=== PATIENT | male | born 1965 | race Caucasian/White ===

== ENCOUNTER → 2017-03-18 | Outpatient (CLI) | payer MEDICAID ==
[~2017-03-18] MED LIST: FLAGYL500 M1 PO; HYDROCHLOROTH12.5 M1 PO; LOPRESSOR 25MG.25 MG PO; OMEPRAZOLE20 MG PO; PREDNISONE 20MG20 MG PO
[2017-03-18 13:54] LABS: BUN 10 mg/dL (7-18); GFR (ESTIMATED) 102 ML/MIN (>60)
== END ==
LOC: CARL-LAB 08:26
PROVIDERS: Internal Medicine Adolescent Medicine
DX: I10 Essential (primary) hypertension (principal)